=== PATIENT | male | born 1960 | race African-American/Black ===

== ENCOUNTER 2024-02-27 06:20 | Emergency (ER) | payer OTHER ==
[~2024-02-27] VITALS: Ht 165.1 cm; Wt 86.0 kg
[2024-02-27 06:26] VITALS: O2SAT 98
[2024-02-27 07:33] LABS: BASOPHILS % 0.2 % (0.0-2.0); EOSINOPHILS % 0.7 % (0.0-5.0); HEMATOCRIT. 32.1 % (42.0-52.0); HEMOGLOBIN. 11.1 g/dL (14.0-18.0); LYMPHOCYTES % 21.3 % (20.0-50.0); MEAN CORPUSCULAR HEMOGLOBIN 29.7 pg (28.0-32.0); MEAN CORPUSCULAR HGB CONC 34.4 g/dL (31.0-37.0); MEAN CORPUSCULAR VOLUME 86.2 fL (80.0-94.0); MEAN PLATELET VOLUME 7.8 fl (7.4-10.4); MONOCYTES % 11.7 % (2.0-8.0); NEUTROPHILS % 66.1 % (40.0-76.0); PLATELET 251 x1000/uL (130-400); RED BLOOD CELL COUNT 3.73 mill/uL (4.7-6.1); RED CELL DISTRIBUTION WIDTH 14.4 % (11.6-14.6); WHITE BLOOD COUNT 9.3 x1000/uL (4.5-11.0)
[2024-02-27] MEDS: IOHEXOL-350 100 ML BOTTLE ONE (07:38)
[2024-02-27 07:44] LABS: INR 0.9; PROTHROMBIN TIME 10.3 sec (9.6-11.0)
[2024-02-27 07:48] LABS: CHLORIDE 105 mEq/L (98-107); POTASSIUM 3.7 mEq/L (3.5-5.1); SODIUM 138 mEq/L (136-145)
[2024-02-27 07:49] LABS: CALCIUM 9.5 mg/dL (8.7-10.4); CARBON DIOXIDE 22 mEq/L (21-32)
[2024-02-27 07:54] LABS: CREATININE 1.7 mg/dL (0.6-1.3); GLUCOSE 147 mg/dL (70-105); UREA NITROGEN BLOOD 39 mg/dL (9-23)
[2024-02-27 07:55] LABS: TROPONIN I HIGH SENSITIVITY 6 ng/L (3.0-53)
[2024-02-27 08:05] LABS: ETHANOL BLOOD < 10 mg/dL (<10)
[2024-02-27] MEDS: ASPIRIN 325MG EC TABLET PO ONE (08:18)
[2024-02-27] MEDS ORDERED: NALOXONE HCL 0.4MG/ML VIAL IV PRN (12:00)
[2024-02-27] MEDS ORDERED: TRAMADOL 50MG TABLET PO PRN (12:00)
[2024-02-27] MEDS ORDERED: ACETAMINOPHEN 325MG TABLET PO PRN (12:00)
[2024-02-27] MEDS ORDERED: GUAIFENESIN 200MG/10ML SUGAR FREE UDC PO PRN (12:00)
[2024-02-27] MEDS ORDERED: SODIUM CHLORIDE 0.45% 1,000 ML IV SCH (12:00)
[2024-02-27] MEDS ORDERED: ONDANSETRON HCL 4MG/2ML INJ IV PRN (12:00)
[2024-02-27] MEDS ORDERED: DOCUSATE SODIUM 100MG CAPSULE PO PRN (12:00)
[2024-02-27 12:27] VITALS: BP 155/75; PULSE 94; RESP 17; TEMP 98.8
[2024-02-27] MEDS ORDERED: ENOXAPARIN 40MG/0.4ML SYR SUBCUT SCH (13:00)
[2024-02-28] MEDS ORDERED: ASPIRIN 81MG EC TABLET PO SCH (09:00)
== END 2024-02-27 12:24 | disposition short-term general hospital (02) ==
LOC: ER 06:20 → EDBEDREQ 10:10 → ER 12:24
DX: I63.9 Cerebral infarction, unspecified (principal); I10 Essential (primary) hypertension; E11.9 Type 2 diabetes mellitus without complications
CPT/HCPCS: 80048; 80320; 85025; 85610; 84484; 36415; 71045; 70496; 70498; 70450; 93005; 99291; Q9967; G0480